=== PATIENT | female | born 1950 ===

== ENCOUNTER 2022-01-25 18:11 | Inpatient (IN) | payer MEDICARE, OTHER ==
[~2022-01-25] VITALS: Ht 157.5 cm; Wt 67.7 kg
[2022-01-25] MEDS ORDERED: MELA3 PO (22:48)
[2022-01-25] MEDS ORDERED: TURMERIC500 M2 PO (22:49)
[2022-01-25] MEDS ORDERED: VITAMIN D310 MC1 PO (22:51)
--- NOTE | 2022-01-26 03:39 | NUR ---
SHIFT SUMMARY PT ARRIVED TO FLOOR AROUND 2230 FROM [place] FOR [facility]. ASSESSMENT COMPLETE, ADMIT COMPLETE. VITALS WDL. SKIN INTACT. NG TUBE TO LEFT NARE SECURE WITH TAPE, LOW INTERMITENT SUCTION, ABOUT 150ML GREEN/BROWN OUTPUT. REPORTS MILD ABDOMINAL PAIN, 2/10. PASSING GAS, HYPOACTIVE BOWEL TONES. PT REPORTS 5/10 PAIN TO FACE/NOSE. OFFERED HER THROAT SPRAY FOR DISCOMFORT, PT REQUESTING IV PAIN MEDICATION INSTEAD. IV FLUIDS CONTINUES. AMBULATES INDEPENDENTLY TO BATHROOM AFTER SET UP. GENERAL SURGERY CONSULT IN AND CALLED FOR CONSULT. PT ABLE TO MAKE NEEDS KNOWN, CALL LIGHT IN REACH
[2022-01-26 05:35] LABS: BASOPHILS ABSOLUTE AUTO 0.03 K/mm3 (0.00-0.23); BASOPHILS PERCENT AUTO 1 % (0-2); EOSINOPHILS ABSOLUTE AUTO 0.26 K/mm3 (0.00-0.68); EOSINOPHILS PERCENT AUTO 4 % (0-6); Hematocrit 32.1 % (33.0-51.0); Hemoglobin 10.5 g/dL (11.5-16.0); IMMATURE GRAN ABSOLUTE AUTO 0.02 K/mm3 (0.00-0.10); IMMATURE GRAN PERCENT AUTO 0 % (0-1); LYMPHOCYTES ABSOLUTE AUTO 1.02 K/mm3 (0.84-5.20); LYMPHOCYTES PERCENT AUTO 15 % (21-46); MONOCYTES PERCENT AUTO 9 % (4-13); Mean Corpuscular HGB 31.3 pg (26.0-34.0); Mean Corpuscular HGB Conc 32.7 g/dL (31.5-36.5); Mean Corpuscular Volume 96 fL (80-100); NEUTROPHILS PERCENT AUTO 71 % (41-73); Platelet Count 160 K/mm3 (150-400); RDW Coefficient Variation 13.5 % (11.7-14.2); RDW Standard Deviation 47.1 fL (35.1-46.3); Red Blood Cell Count 3.35 M/mm3 (3.80-5.20); White Blood Cell Count 6.63 K/mm3 (4.00-11.30)
[2022-01-26 06:42] LABS: Bun/Creatinine Ratio 14.6 (12.0-20.0); Calcium, Blood 8.5 mg/dL (8.5-10.1); Creatinine, Blood 0.75 mg/dL (0.40-1.00); Potassium, Blood 3.6 mmol/L (3.5-5.5)
--- NOTE | 2022-01-26 17:58 | NUR ---
SHIFT SUMMARY: NO NEW CHANGES THIS SHIFT. PATIENT STILL NPO. NG TUBE TO LEFT NARES STILL SECURE c TAPE AND HAS BEEN IN LIS T/O SHIFT. SUCTIONS HAS BEEN PRODUCING GREENISH/BROWN COLOR GI CONTENT AND ABOUT 400 MLS THIS SHIFT. PATIENT HAS BEEN AMBULATING IN ROOM AND HALLWAYS INDEPENDENTLY. VITAL SIGNS REVIEWED. IV TO R AC INFUSING LR AT 100 MLS/HR. PATIENT REPORTS OF HEADACHE. MEDICATED X1 c FENTANYL 25 MCG FOR HEADACHE. PATIENT REPORTS OF GREAT RELIEF. DR. LOGAN SAW PATIENT TODAY, PLAN TO PERFORM THE PROCEDURE TOMORROW 01/27/22. CALL LIGHT IN REACH.
[2022-01-27 01:57] LABS: Influenza A, PCR NEGATIVE (NEGATIVE); Influenza B, PCR NEGATIVE (NEGATIVE); Resp Syncytial Virus, PCR NEGATIVE (NEGATIVE); SARS-Cov-2 (COVID-19) PCR, MMC NEGATIVE (NEGATIVE)
--- NOTE | 2022-01-27 04:58 | NUR ---
SUMMARY: PATIENT AOX4 INDEPENDENT AMBULATING IN ROOM. WENT FOR A WALK AROUND UNIT BEFORE BED. VSS. NO ACUTE EVENTS. NG TUBE IN PLACE TO LIS. IV PAIN MEDS GIVEN PER MAR. PRN THROAT SPRAY GIVEN. IV FLUIDS RUNNING. PLAN FOR ABD IMAGING THIS AM.
--- NOTE | 2022-01-27 10:00 | NUR ---
PATIENT LEFT THE ROOM TRANSPORTED VIA WHEELCHAIR BY WEBSITE ADMIN TO IMAGING AT THIS TIME.
--- NOTE | 2022-01-27 17:46 | NUR ---
SHIFT SUMMARY: PATIENT A&OX4. PLEASANT AND COOPERATIVE c CARE. USES CALL LIGHT APPROPRIATELY AND ABLE TO ADVOCATE FOR HER NEEDS. PATIENT HAD 3 LARGE BM THIS SHIFT. NG TUBE WAS DC'D AROUND 1515 PER ORDER. PATIENT STARTED ON CL DIET AND HAS BEEN TOLERATING PO INTAKE WELL. REPORTS OF SLIGHT DISCOMFORT TO HER THROAT FROM THE NG TUBE. IV TO L FOREARM INFUSING LR 100 MLS/HR. VITAL SIGNS REVIEWED. CALL LIGHT IN REACH.
--- NOTE | 2022-01-28 04:27 | NUR ---
SUMMARY: NO ACUTE EVENTS OVERNIGHT. PATIENT HAS HAD FREQUENT LIQUID STOOLS THROUGHOUT THE NIGHT. PATIENT AMBULATING INDEPENDENTLY IN ROOM. VSS. IV FLUIDS RUNNING. PATIENT REPORTS NO PAIN IN HER ABDOMEN SINCE SHE HAS BEEN PASSING STOOL. AOX4. CALLS APPROPRIATLY.
--- NOTE | 2022-01-28 16:59 | NUR ---
DISCHARGE SUMMARY: PT DISCHARGED HOME TODAY AFTER TOLERATING REGULAR DIET PO INTAKE. PT REPORTED NO ABD PAIN AND CONTINUES TO HAVE BM'S. INSTRUCTED PT ON DISCHARGE INSTRUCTIONS. PT VU. PT HAS FOLLOW-UP APPOINTMENTS SCHEDULED WITH PCP AND DR. LOGAN. ASSISTED PT WITH PACKING BELONGINGS. PT ESCORTED TO POV WITH SON VIA WC.
== END 2022-01-28 16:37 | disposition home or self-care (01) | DRG 390 ==
LOC: MEDS 18:11
PROVIDERS: Surgery; ADMIT Family Medicine
DX: K56.600 Partial intestinal obstruction, unspecified as to cause (principal); Z20.822 Contact with and (suspected) exposure to COVID-19; E78.5 Hyperlipidemia, unspecified; E83.52 Hypercalcemia; M19.90 Unspecified osteoarthritis, unspecified site; J45.909 Unspecified asthma, uncomplicated; Z90.49 Acquired absence of other specified parts of digestive tract; Z98.890 Other specified postprocedural states; Z79.899 Other long term (current) drug therapy
CPT/HCPCS: 0241U; 36415; 74250; 80048; 85025; A9270; C9113; J2405; J3010; J7120; Q9963